=== PATIENT | female | born 1960 | race Caucasian/White ===

== ENCOUNTER 2021-05-28 16:54 | Emergency (ER) | payer OTHER ==
[2021-05-28 18:00] LABS: BASOPHIL 0.4 % (0-2); EOSINOPHIL 1.2 % (0-5); HCT 45.5 % (37.0-47.0); HGB 14.9 g/dl (12.5-16.0); MCH 29.7 pg (25.0-31.0); MCHC 32.7 g/dL (32.0-36.0); MCV 90.8 fL (78.0-100.0); MPV 10.7 fL (6.0-9.5); NEUTROPHIL 64.1 % (41-80); NRBC 0; PLT 216 K/uL (150-400); RBC 5.01 M/uL (4.20-5.40); RDW 13.7 % (11.5-14.0); WBC 9.2 K/uL (4.0-10.5)
[2021-05-28 18:22] LABS: ALBUMIN 3.7 g/dL (3.4-5.0); BILIRUBIN - TOTAL 0.2 mg/dL (0.2-1.0); BUN/CREAT RATIO (CALC) 11.4 RATIO; CREATININE 0.79 mg/dL (0.51-0.95); GLOBULIN (CALCULATION) 3.8 g/dL; POTASSIUM 3.6 mmol/L (3.5-5.1); TOTAL PROTEIN 7.5 g/dL (6.4-8.2)
[2021-05-28 18:26] LABS: BILIRUBIN NEGATIVE (NEGATIVE); BLOOD TRACE-INTACT Ery/uL (NEGATIVE); CLARITY CLEAR (CLEAR); COLOR YELLOW (YELLOW); GLUCOSE (U) NORMAL (NORMAL); LEUKOCYTES NEGATIVE Leu/uL (NEGATIVE); NITRITE NEGATIVE (NEGATIVE); PROTEIN NEGATIVE (NEGATIVE); SPECIFIC GRAVITY 1.015 (1.001-1.030); UROBILINOGEN 0.2 mg/dL (0.2-1.0)
[2021-05-28 18:35] LABS: BACTERIA TRACE
== END 2021-05-28 19:34 | disposition home or self-care (01) ==
LOC: FER 16:54
PROVIDERS: Physician Assistant Medical
DX: F07.81 Postconcussional syndrome (principal); I10 Essential (primary) hypertension; F17.210 Nicotine dependence, cigarettes, uncomplicated; Z88.6 Allergy status to analgesic agent
CPT/HCPCS: 36415; 70450; 80053; 81001; 85025